=== PATIENT | male | born 1960 | race Caucasian/White ===

== ENCOUNTER 2021-04-07 13:06 | Inpatient (IN) ==
[2021-04-07] MEDS ORDERED: Lactated Ringers 1000 ml BAG 1,000 ML IV ONE (13:30)
[2021-04-07 14:31] LABS: ABS Lymphocytes 1.4 10^3/ul (1.0-4.8); ABS Monocytes 1.2 10^3/ul (0-0.8); ABS Neutrophils 8.8 10^3/ul (1.5-7.7); Hematocrit 46 % (42-52); Hemoglobin 15.7 g/dL (14.0-18.0); Lymphocyte % 12.5 %; Mean Corpuscular HGB Conc 34 g/dL (31-36); Mean Corpuscular Hemoglobin 35 pg (27-31); Mean Corpuscular Volume 102 fL (80-94); Mean Platelet Volume 8.2 fL (7.4-10.4); Platelet Count 115 10^3/uL (150-450); Red Blood Count 4.47 10^6 /uL (4.18-5.48); Red Cell Distribution Width 12 % (10-15); White Blood Count 11.4 10^3/uL (3.5-10.8)
[2021-04-07 14:37] LABS: ALT 110 U/L (7-52); AST 75 U/L (13-39); Albumin 4.7 g/dL (3.2-5.2); Albumin/Globulin Ratio 1.3 (1-3); Alkaline Phosphatase 94 U/L (35-149); Anion Gap 15 mmol/L (2-11); Blood Urea Nitrogen 22 mg/dL (6-24); CO2 Carbon Dioxide 21 mmol/L (22-32); Chloride 95 mmol/L (101-111); EGFR African American 81.5 (>60); EGFR Non-African American 67.3 (>60); Globulin 3.6 g/dL (2-4); Glucose 111 mg/dL (70-100); Potassium 3.7 mmol/L (3.5-5.0); Sodium 131 mmol/L (135-145); Total Protein 8.3 g/dL (6.4-8.9)
[2021-04-07 14:53] LABS: Troponin I 0.04 ng/mL (<0.03)
[2021-04-07 15:23] LABS: Urine Appearance Cloudy; Urine Bacteria Absent (Absent); Urine Bilirubin Negative (Negative); Urine Blood Negative (Negative); Urine Color Amber; Urine Glucose Negative (Negative); Urine Ketones 2+ (Negative); Urine Nitrite Negative (Negative); Urine Protein 1+(30 mg/dL) (Negative); Urine Red Blood Cell 1+(3-5/hpf) (Absent); Urine Urobilinogen Negative (Negative); Urine White Blood Cell Absent (Absent)
[2021-04-07 15:35] LABS: Lipase 37 U/L (11.0-82.0)
[2021-04-07 15:54] LABS: Urine Specific Gravity > 1.060 (1.002-1.030)
[2021-04-07] MEDS ORDERED: Al Hydrox/Mg Hydrox/Simet LIQ 30 ML UDC PO PRN (16:00)
[2021-04-07 16:52] LABS: Troponin I 0.03 ng/mL (<0.03)
[2021-04-07] MEDS ORDERED: LORazepam 2 mg VIAL 1 ml IV PUSH SCH (17:00)
[2021-04-07 18:07] LABS: Rapid COVID-19 Molecular Undetected (Undetected)
[2021-04-07] MEDS ORDERED: Lorazepam PYXIS KEY PRN (18:42)
[2021-04-07] MEDS: Enoxaparin 40 MG/0.4 ML SYR SUBCUT SCH (20:56)
[2021-04-07 22:10] LABS: Troponin I 0.03 ng/mL (<0.03)
[2021-04-07] MEDS: NS 0.9% 1000 ml BAG 1,000 ML IV SCH (22:18)
[2021-04-08 05:00] LABS: Hematocrit 37 % (42-52); Hemoglobin 12.9 g/dL (14.0-18.0); Mean Corpuscular HGB Conc 35 g/dL (31-36); Mean Corpuscular Hemoglobin 36 pg (27-31); Mean Corpuscular Volume 103 fL (80-94); Red Blood Count 3.64 10^6 /uL (4.18-5.48); Red Cell Distribution Width 13 % (10-15); White Blood Count 7.5 10^3/uL (3.5-10.8)
[2021-04-08 05:25] LABS: ABS Lymphocytes 2.4 10^3/ul (1.0-4.8); ABS Monocytes 0.9 10^3/ul (0-0.8); ABS Neutrophils 4.1 10^3/ul (1.5-7.7); Eosinophil % 0.7 %; Lymphocyte % 32.1 %; Mean Platelet Volume 7.5 fL (7.4-10.4); Platelet Count 81 10^3/uL (150-450)
[2021-04-08 05:29] LABS: C Reactive Protein 2.41 mg/L (<8.01); Calcium 8.3 mg/dL (8.6-10.3); EGFR African American 125.6 (>60); EGFR Non-African American 103.8 (>60); Potassium 3.5 mmol/L (3.5-5.0)
[2021-04-08] MEDS: NS 0.9% 1000 ml BAG 1,000 ML IV SCH ×3 (05:30→22:58)
[2021-04-08] MEDS: Multivitamins/Minerals TAB PO SCH (10:12)
[2021-04-08] MEDS: Enoxaparin 40 MG/0.4 ML SYR SUBCUT SCH (15:48)
[2021-04-09] MEDS: NS 0.9% 1000 ml BAG 1,000 ML IV SCH ×3 (05:39→22:00)
[2021-04-09] MEDS: Multivitamins/Minerals TAB PO SCH (09:34)
[2021-04-09] MEDS ORDERED: fentaNYL 100 mcg/2 ml 50 MCG/ML VIAL ONE (14:34)
[2021-04-09] MEDS ORDERED: Midazolam 10 mg/10 ml VIAL 1 mg/ml 10 ml VIAL (10 mg) ONE (14:34)
[2021-04-09] MEDS ORDERED: diPHENhydraMINE IV 50 MG/ML 1 ml VIAL (BENADRYL) ONE (15:24)
[2021-04-09] MEDS: Enoxaparin 40 MG/0.4 ML SYR SUBCUT SCH (17:42)
[2021-04-10] MEDS: NS 0.9% 1000 ml BAG 1,000 ML IV SCH (04:44)
[2021-04-10 08:32] VITALS: BP 125/75
[2021-04-10] MEDS ORDERED: guaiFENesin/CODIENE 100mg/10mg 5 ML UDC PO PRN (08:35)
[2021-04-10] MEDS: Multivitamins/Minerals TAB PO SCH (10:12)
== END 2021-04-10 11:10 | disposition home or self-care (01) | DRG 241 ==
LOC: ED 13:06 → MED 16:00 → SUATTDRO 16:00 → MED 20:38
PROVIDERS: ADMIT Internal Medicine; ATTEND Student in an Organized Health Care Education/Training Program